=== PATIENT | female | born 1970 | race Caucasian/White ===

== ENCOUNTER 2023-08-28 09:49 | Inpatient (IN) | payer BC ==
[2023-08-28] MEDS ORDERED: ACETAMINOPHEN INJECTION 100 ML IVPB ONE (10:31)
[2023-08-28] MEDS: SODIUM CHLORIDE 0.9% 1000 ML INFUS.BAG IV ONE (10:47)
[2023-08-28] MEDS: ACETAMINOPHEN 1000 MG/100 ML BAG IVPB ONE (10:48)
[2023-08-28 10:59] LABS: HEMATOCRIT 41.3 % (32.4-45.2); HEMOGLOBIN 13.9 GM/dL (10.7-15.3); MCH 30.8 pg (25.7-33.7); MCHC 33.6 g/dl (32.0-36.0); MEAN CELL VOLUME 91.6 fl (80-96); MEAN PLT VOLUME 8.5 fl (7.5-11.1); PLATELET COUNT 294 10^3/uL (134-434); RBC 4.51 M/mm3 (3.60-5.2); RDW 13.7 % (11.6-15.6); WHITE BLOOD COUNT 17.6 K/mm3 (4.0-10.0)
[2023-08-28 11:22] LABS: CHLORIDE 105 mmol/L (98-107); POTASSIUM 3.9 mmol/L (3.5-5.1); SODIUM 134 mmol/L (136-145)
[2023-08-28 11:23] LABS: HCG,QUALITATIVE URINE Negative
[2023-08-28 11:24] LABS: CALCIUM 9.1 mg/dL (8.5-10.1)
[2023-08-28 11:25] LABS: ALBUMIN 3.6 g/dl (3.4-5.0); ANION GAP 6 mmol/L (4-13); BLOOD UREA NITROGEN 12.9 mg/dL (7-18); CO2 23 mmol/L (21-32); GLUCOSE,RANDOM 146 mg/dL (74-106)
[2023-08-28 11:28] LABS: CREATININE 1.2 mg/dL (0.55-1.3); SGOT/AST 11 U/L (15-37); SGPT/ALT 23 U/L (13-61)
[2023-08-28 11:30] LABS: BILIRUBIN,TOTAL 0.8 mg/dL (0.2-1); TOT PROT 7.4 g/dl (6.4-8.2)
[2023-08-28 11:31] LABS: ALK PHOS 136 U/L (45-117)
[2023-08-28 17:50] VITALS: BMI 29.4
[2023-08-28] MEDS: ACETAMINOPHEN 325 MG TABLET (FP) PO PRN (19:22)
[2023-08-29 07:49] LABS: HEMATOCRIT 39.9 % (32.4-45.2); HEMOGLOBIN 13.2 GM/dL (10.7-15.3); MCH 30.3 pg (25.7-33.7); MCHC 33.2 g/dl (32.0-36.0); MEAN CELL VOLUME 91.5 fl (80-96); MEAN PLT VOLUME 9.2 fl (7.5-11.1); PLATELET COUNT 260 10^3/uL (134-434); RBC 4.36 M/mm3 (3.60-5.2); RDW 13.6 % (11.6-15.6); WHITE BLOOD COUNT 22.9 K/mm3 (4.0-10.0)
[2023-08-29 08:12] LABS: POTASSIUM 3.6 mmol/L (3.5-5.1)
[2023-08-29 08:25] LABS: CALCIUM 8.7 mg/dL (8.5-10.1)
[2023-08-29] MEDS ORDERED: SODIUM CHLORIDE 1,000 ML IV SCH (09:15)
[2023-08-29 09:36] LABS: BLOOD UREA NITROGEN 12.4 mg/dL (7-18); CREATININE 0.9 mg/dL (0.55-1.3)
[2023-08-29 09:37] LABS: ALBUMIN 3.2 g/dl (3.4-5.0); BILIRUBIN,TOTAL 1.2 mg/dL (0.2-1); TOT PROT 7.1 g/dl (6.4-8.2)
[2023-08-29] MEDS: SODIUM CHLORIDE 0.9%/KCL 20 MEQ/1,000 ML INFUS.BAG IV SCH (10:39)
[2023-08-29] MEDS: ENOXAPARIN NA (PORCINE) 40 MG/0.4 ML DISP.SYRIN SQ SCH (10:40)
[2023-08-29] MEDS: ASPIRIN COATED 81 MG TABLET.EC PO SCH (10:40)
[2023-08-29 11:48] LABS: ERYTHROCYTE SEDIMENTATION RATE 51 mm/hr (0-30)
[2023-08-29] MEDS: CEFTRIAXONE 1 GM in DEXTROSE 5%-WATER - 50 ML IVPB SCH (11:48)
[2023-08-29] MEDS: PANTOPRAZOLE 40 MG TABLET PO SCH (11:50)
[2023-08-29 13:51] LABS: EPI CELLS >36 /uL (0-25.1); HYALINE CASTS 12 /uL (0-3.1); PH,URINE 5.5 (5.0-8.0); URINE APPEARANCE CLOUDY; URINE BACTERIA 747 /uL (0-1359); URINE BILIRUBIN NEGATIVE (NEGATIVE); URINE COLOR DK YELLOW; URINE GLUCOSE (UA) NEGATIVE (NEGATIVE); URINE KETONE 2+ (NEGATIVE); URINE LEUK ESTERASE TRACE (NEGATIVE); URINE NITRITE NEGATIVE (NEGATIVE); URINE PROTEIN 2+ (NEGATIVE); URINE WBC 63 /uL (0-25.8)
[2023-08-29 14:06] LABS: URINE RBC 33.9 /uL (0-23.9)
[2023-08-29] MEDS: ONDANSETRON 4 MG/2 ML VIAL IVPUSH PRN (15:25)
[2023-08-29] MEDS ORDERED: PIPERACILLIN/TAZOB 3.375 GM 3.375 GM in DEXTROSE 5%-WATER - 50 ML IVPB SCH (18:00)
[2023-08-29] MEDS: PIPERACILLIN/TAZOB 3.375 GM 3.375 GM in DEXTROSE 5%-WATER - 50 ML IVPB SCH (21:59)
[2023-08-29] MEDS: FERROUS SO4 325 MG TABLET (FP) PO SCH (21:59)
[2023-08-30 09:11] LABS: BASO % 0.1 % (0-2.0); EOS % 0.3 % (0-4.5); HEMATOCRIT 36.3 % (32.4-45.2); HEMOGLOBIN 12.5 GM/dL (10.7-15.3); LYMPH % 8.1 % (8-40); MCHC 34.3 g/dl (32.0-36.0); MEAN CELL VOLUME 90.3 fl (80-96); MEAN PLT VOLUME 9.1 fl (7.5-11.1); MONO % 6.2 % (3.8-10.2); NEUT % 85.3 % (42.8-82.8); PLATELET COUNT 279 10^3/uL (134-434); RBC 4.02 M/mm3 (3.60-5.2); RDW 13.3 % (11.6-15.6); WHITE BLOOD COUNT 19.8 K/mm3 (4.0-10.0)
[2023-08-30 09:21] LABS: POTASSIUM 3.4 mmol/L (3.5-5.1)
[2023-08-30 09:25] LABS: CALCIUM 8.4 mg/dL (8.5-10.1)
[2023-08-30 09:26] LABS: BLOOD UREA NITROGEN 12.4 mg/dL (7-18); MAGNESIUM 2.2 mg/dL (1.8-2.4)
[2023-08-30 09:29] LABS: CREATININE 0.9 mg/dL (0.55-1.3)
[2023-08-30] MEDS ORDERED: LIDOCAINE HCL 1%, 10 MG/ML (20ML VIAL) ONE (09:51)
[2023-08-30] MEDS ORDERED: BUPIVACAINE HCL/PF 0.5% (5MG/ML) 10 ML VIAL ONE (09:52)
[2023-08-30] MEDS ORDERED: KETOROLAC TROMETHAMINE 30 MG/1 ML VIAL ONE (10:09)
[2023-08-30] MEDS ORDERED: ONDANSETRON 4 MG/2 ML VIAL ONE (10:09)
[2023-08-30] MEDS ORDERED: ceFAZolin SODIUM 1 GM VIAL ONE (10:09)
[2023-08-30] MEDS ORDERED: LIDOCAINE HCL/PF 2% SDV 5ML VIAL ONE (10:09)
[2023-08-30] MEDS ORDERED: DEXAMETHASONE SOD PHOSPHATE 4 MG/1 ML VIAL ONE (10:09)
[2023-08-30] MEDS ORDERED: SODIUM CHLORIDE 0.9% P/F 10 ML VIAL IJ ONE ×2 (10:09→10:14)
[2023-08-30] MEDS ORDERED: PROPOFOL 20 ML ONE ×2 (10:12→10:13)
[2023-08-30] MEDS ORDERED: ROCURONIUM BROMIDE 50 MG/5 ML SYRINGE ONE (10:12)
[2023-08-30] MEDS ORDERED: SUCCINYLCHOLINE CHLORIDE 200 MG/10 ML SYRINGE ONE (10:12)
[2023-08-30] MEDS ORDERED: FENTANYL CITRATE/PF 50 MCG/ML VIAL ONE (10:13)
[2023-08-30] MEDS ORDERED: HYDROmorphone HCl 2 MG/ML VIAL ONE (10:15)
[2023-08-30] MEDS ORDERED: MIDAZOLAM HCL 2 MG/2 ML SINGLE DOSE VIAL ONE (10:15)
[2023-08-31 08:28] LABS: BASO % 0.1 % (0-2.0); EOS % 1.4 % (0-4.5); HEMATOCRIT 34.9 % (32.4-45.2); HEMATOCRIT 35.2 % (32.4-45.2); HEMOGLOBIN 11.6 GM/dL (10.7-15.3); HEMOGLOBIN 11.7 GM/dL (10.7-15.3); LYMPH % 8.7 % (8-40); MCH 30.3 pg (25.7-33.7); MCH 30.4 pg (25.7-33.7); MCHC 33.4 g/dl (32.0-36.0); MEAN CELL VOLUME 90.9 fl (80-96); MEAN CELL VOLUME 91.3 fl (80-96); MEAN PLT VOLUME 8.4 fl (7.5-11.1); MEAN PLT VOLUME 8.5 fl (7.5-11.1); MONO % 8.5 % (3.8-10.2); NEUT % 81.3 % (42.8-82.8); PLATELET COUNT 294 10^3/uL (134-434); PLATELET COUNT 302 10^3/uL (134-434); RBC 3.84 M/mm3 (3.60-5.2); RBC 3.85 M/mm3 (3.60-5.2); RDW 13.3 % (11.6-15.6); RDW 13.7 % (11.6-15.6); WHITE BLOOD COUNT 17.4 K/mm3 (4.0-10.0); WHITE BLOOD COUNT 17.5 K/mm3 (4.0-10.0)
[2023-08-31 08:39] LABS: POTASSIUM 3.9 mmol/L (3.5-5.1)
[2023-08-31 08:40] LABS: CALCIUM 8.5 mg/dL (8.5-10.1)
[2023-08-31 08:41] LABS: BLOOD UREA NITROGEN 10.1 mg/dL (7-18)
[2023-08-31 08:44] LABS: CREATININE 0.8 mg/dL (0.55-1.3); PHOSPHOROUS 2.1 mg/dL (2.5-4.9)
[2023-09-01] MEDS: SODIUM CHLORIDE 0.9%/KCL 20 MEQ/1,000 ML INFUS.BAG IV SCH ×2 (02:16→12:15)
[2023-09-01] MEDS ORDERED: BUPIVACAINE HCL/PF 0.25% (2.5MG/ML) 10 ML VIAL ONE (07:04)
[2023-09-01] MEDS ORDERED: INDOCYANINE GREEN 25 MG/10 ML VIAL IVPUSH ONE (07:04)
[2023-09-01] MEDS ORDERED: DEXAMETHASONE SOD PHOSPHATE 4 MG/1 ML VIAL ONE (07:41)
[2023-09-01] MEDS ORDERED: METOCLOPRAMIDE HCL INJECTION 10 MG/2 ML VIAL ONE (07:41)
[2023-09-01] MEDS ORDERED: SODIUM CHLORIDE 0.9% P/F 10 ML VIAL IJ ONE (07:41)
[2023-09-01] MEDS ORDERED: KETOROLAC TROMETHAMINE 30 MG/1 ML VIAL ONE (07:41)
[2023-09-01] MEDS ORDERED: LIDOCAINE HCL/PF 2% SDV 5ML VIAL ONE (07:41)
[2023-09-01] MEDS ORDERED: ONDANSETRON 4 MG/2 ML VIAL ONE (07:41)
[2023-09-01] MEDS ORDERED: SEVOFLURANE 250 ML BTL ONE (07:45)
[2023-09-01] MEDS ORDERED: ACETAMINOPHEN INJECTION 100 ML IVPB ONE (07:45)
[2023-09-01] MEDS ORDERED: SUCCINYLCHOLINE CHLORIDE 200 MG/10 ML SYRINGE ONE (07:48)
[2023-09-01] MEDS ORDERED: ROCURONIUM BROMIDE 50 MG/5 ML SYRINGE ONE (07:48)
[2023-09-01] MEDS ORDERED: PROPOFOL 40 ML ONE (07:51)
[2023-09-01] MEDS ORDERED: SUGAMMADEX SODIUM 200 MG/2 ML VIAL ONE (08:11)
[2023-09-01] MEDS ORDERED: FENTANYL CITRATE/PF 50 MCG/ML VIAL ONE ×3 (08:12→10:18)
[2023-09-01] MEDS ORDERED: MIDAZOLAM HCL 2 MG/2 ML SINGLE DOSE VIAL ONE (08:12)
[2023-09-01 08:33] LABS: INR 1.06 (0.83-1.09); PROTHROMBIN TIME (PATIENT) 12.2 SEC (9.7-13.0)
[2023-09-01 08:36] LABS: ACTIVATED PTT 21.8 SECONDS (25.2-36.5)
[2023-09-01 08:37] LABS: POTASSIUM 3.8 mmol/L (3.5-5.1)
[2023-09-01] MEDS: PIPERACILLIN/TAZOBACTAM 3.375 GM VIAL IVPB ONE (08:41)
[2023-09-01 08:44] LABS: CALCIUM 8.7 mg/dL (8.5-10.1)
[2023-09-01 08:45] LABS: BLOOD UREA NITROGEN 11.2 mg/dL (7-18)
[2023-09-01 08:48] LABS: CREATININE 0.7 mg/dL (0.55-1.3)
[2023-09-01 08:49] LABS: BASO % 0.5 % (0-2.0); EOS % 2.1 % (0-4.5); HEMATOCRIT 35.1 % (32.4-45.2); HEMOGLOBIN 11.6 GM/dL (10.7-15.3); LYMPH % 10.7 % (8-40); MCH 30.4 pg (25.7-33.7); MCHC 33.1 g/dl (32.0-36.0); MEAN CELL VOLUME 91.8 fl (80-96); MEAN PLT VOLUME 8.5 fl (7.5-11.1); MONO % 8.8 % (3.8-10.2); NEUT % 77.9 % (42.8-82.8); PLATELET COUNT 322 10^3/uL (134-434); RBC 3.83 M/mm3 (3.60-5.2); RDW 13.6 % (11.6-15.6); WHITE BLOOD COUNT 16.5 K/mm3 (4.0-10.0)
[2023-09-01] MEDS ORDERED: oxyCODONE HCL 5 MG TABLET PO PRN ×2 (09:42)
[2023-09-01] MEDS ORDERED: ONDANSETRON 4 MG/2 ML VIAL IVPUSH PRN ×2 (09:42→10:25)
[2023-09-01] MEDS ORDERED: ACETAMINOPHEN 325 MG TABLET (FP) PO PRN (10:25)
[2023-09-01] MEDS ORDERED: SODIUM CHLORIDE 0.9%/KCL 20 MEQ/1,000 ML INFUS.BAG IV SCH (10:25)
[2023-09-01] MEDS: PIPERACILLIN/TAZOB 3.375 GM 3.375 GM in DEXTROSE 5%-WATER - 50 ML IVPB SCH (15:08)
[2023-09-01] MEDS: oxyCODONE HCL 5 MG TABLET PO PRN (15:18)
[2023-09-01] MEDS: ENOXAPARIN NA (PORCINE) 40 MG/0.4 ML DISP.SYRIN SQ SCH (20:40)
[2023-09-01] MEDS ORDERED: ENOXAPARIN NA (PORCINE) 40 MG/0.4 ML DISP.SYRIN SQ SCH (21:00)
[2023-09-01] MEDS: FERROUS SO4 325 MG TABLET (FP) PO SCH (21:10)
[2023-09-02 07:49] LABS: BASO % 0.1 % (0-2.0); EOS % 0.8 % (0-4.5); HEMATOCRIT 33.1 % (32.4-45.2); HEMOGLOBIN 10.9 GM/dL (10.7-15.3); MCH 30.2 pg (25.7-33.7); MEAN CELL VOLUME 91.5 fl (80-96); MEAN PLT VOLUME 8.1 fl (7.5-11.1); MONO % 9.5 % (3.8-10.2); NEUT % 73.6 % (42.8-82.8); PLATELET COUNT 340 10^3/uL (134-434); RBC 3.62 M/mm3 (3.60-5.2); RDW 13.6 % (11.6-15.6)
[2023-09-02 08:01] LABS: BLOOD UREA NITROGEN 11.1 mg/dL (7-18)
[2023-09-02 08:02] LABS: CALCIUM 8.6 mg/dL (8.5-10.1)
[2023-09-02 08:04] LABS: CREATININE 0.7 mg/dL (0.55-1.3)
[2023-09-02] MEDS: PANTOPRAZOLE 40 MG TABLET PO SCH (09:16)
[2023-09-02] MEDS: MULTIVITAMINS (DAILY MVI) TABLET (FP) PO SCH (09:16)
[2023-09-02] MEDS: oxyCODONE HCL 5 MG TABLET PO PRN (16:47)
[2023-09-03 08:47] LABS: HEMOGLOBIN 11.8 GM/dL (10.7-15.3); MCHC 32.8 g/dl (32.0-36.0); MEAN CELL VOLUME 91.5 fl (80-96); MEAN PLT VOLUME 8.2 fl (7.5-11.1); PLATELET COUNT 390 10^3/uL (134-434); RBC 3.94 M/mm3 (3.60-5.2); RDW 13.5 % (11.6-15.6)
[2023-09-03 08:54] LABS: POTASSIUM 3.5 mmol/L (3.5-5.1)
[2023-09-03 08:57] LABS: CALCIUM 8.2 mg/dL (8.5-10.1)
[2023-09-03 08:58] LABS: BLOOD UREA NITROGEN 9.9 mg/dL (7-18)
[2023-09-03 09:01] LABS: CREATININE 0.7 mg/dL (0.55-1.3)
[2023-09-03 09:41] LABS: ANISOCYTOSIS 0; HELMET CELLS 0; HOWELL-JOLLY BODIES 0; MACROCYTOSIS 0; OVALOCYTE 0; ROULEAU 0; SICKELED CELLS 0; TARGET CELLS 0; TEAR DROP CELLS 0; TOXIC GRANULATION 0
[2023-09-04 08:30] LABS: BASO % 0.4 % (0-2.0); EOS % 3.7 % (0-4.5); HEMATOCRIT 39.9 % (32.4-45.2); HEMOGLOBIN 13.5 GM/dL (10.7-15.3); LYMPH % 26.6 % (8-40); MCH 30.6 pg (25.7-33.7); MCHC 33.9 g/dl (32.0-36.0); MEAN CELL VOLUME 90.2 fl (80-96); MEAN PLT VOLUME 7.9 fl (7.5-11.1); MONO % 9.9 % (3.8-10.2); NEUT % 59.4 % (42.8-82.8); PLATELET COUNT 563 10^3/uL (134-434); RBC 4.42 M/mm3 (3.60-5.2); RDW 13.7 % (11.6-15.6); WHITE BLOOD COUNT 11.9 K/mm3 (4.0-10.0)
[2023-09-04 08:47] LABS: POTASSIUM 3.7 mmol/L (3.5-5.1)
[2023-09-04 08:48] LABS: CALCIUM 8.8 mg/dL (8.5-10.1)
[2023-09-04 08:50] LABS: BLOOD UREA NITROGEN 6.8 mg/dL (7-18); MAGNESIUM 2.3 mg/dL (1.8-2.4)
[2023-09-04] MEDS: LACTATED RINGERS SOLUTION 1,000 ML IV SCH (08:51)
[2023-09-04 08:53] LABS: CREATININE 0.8 mg/dL (0.55-1.3)
[2023-09-04 18:06] VITALS: BP 121/68; PULSE 70; RESP 17; TEMP 98.3
== END 2023-09-04 18:31 | disposition home or self-care (01) | DRG 337 ==
LOC: JER 09:49 → JERBED 15:30 → UNDOADMOB 15:30 → INTOOBSV 16:44 → OBSVTOIN 16:44 → JERBED 17:23 → J7W 17:34 → JERBED 17:34 → OBSVTOIN 08-30 09:16
PROVIDERS: ADMIT Internal Medicine; ATTEND Nurse Practitioner
PROC: 0DNW4ZZ Release Peritoneum, Percutaneous Endoscopic Approach (ICD-10-PCS; 2023-09-01)
PROC: 0W9G40Z Drainage of Peritoneal Cavity with Drainage Device, Percutaneous Endoscopic Approach (ICD-10-PCS; 2023-09-01)
PROC: 8E0W4CZ Robotic Assisted Procedure of Trunk Region, Percutaneous Endoscopic Approach (ICD-10-PCS; 2023-09-01)
PROC: 0DTJ4ZZ Resection of Appendix, Percutaneous Endoscopic Approach (ICD-10-PCS; principal; 2023-09-01 08:00)
DX: K35.33 Acute appendicitis with perforation, localized peritonitis, and gangrene, with abscess (principal); K57.90 Diverticulosis of intestine, part unspecified, without perforation or abscess without bleeding; D64.9 Anemia, unspecified; K76.89 Other specified diseases of liver; N83.299 Other ovarian cyst, unspecified side
CPT/HCPCS: 36415; 74177-TC; 76830-TC; 80048; 80053; 81003; 82306; 82607; 82728; 83540; 83550; 83735; 84100; 84703; 85025; 85027; 85610; 85651; 85730; 86140; 86256; 86671; 87040; 87045; 87046; 87070; 87075; 87076; 87086; 87186; 87205; 87209; 87324; 87449; 88304-TC; 94010; 94760; 97116-GP; 97162-GP; 99285-25; G0378; J0131; Q9967